=== PATIENT | male | born 1975 | race Two or more races ===

== ENCOUNTER 2016-09-18 03:36 | Emergency (ER) | payer MEDICAID ==
[~2016-09-18] VITALS: Ht 195.6 cm; Wt 172.4 kg
[~2016-09-18 03:36] MED LIST: AMLO10TA2 PO; ASPI81CH43 PO; ATE50T PO
[2016-09-18] MEDS ORDERED: cloNIDine HCL 0.1 MG TAB ONE (03:53)
[2016-09-18 04:00] VITALS: BP 214/117
[2016-09-18] MEDS ORDERED: cloNIDine HCL 0.1 MG TAB PO ONE (04:00)
[2016-09-18 04:30] LABS: Basophils # (auto) 0 uL; Basophils % (auto) 0.5 % (0.0-2.0); DEFINITIVE VIEW TRANSMISSION; Eosinophils # (auto) 0.3 uL; Eosinophils % (auto) 3.3 % (0.0-7.0); Hemoglobin 11.4 g/dL (13.5-17.5); Lymphocytes % (auto) 21.2 % (10.0-50.0); Mean Corpuscular Hemoglobin 23.6 pg (28.0-32.0); Mean Corpuscular Hgb Conc. 31.7 g/dL (32.0-36.0); Mean Corpuscular Volume 74.4 fL (80.0-100.0); Mean Platelet Volume 8.3 fL (7.4-10.4); Monocytes # (auto) 0.8 uL; Monocytes % (auto) 8.2 % (0.0-12.0); Neutrophils # (auto) 6.3 uL; Neutrophils % (auto) 66.8 % (37.0-80.0); Platelet Count (auto) 275 10^3/uL (140-450); Red Cell Distribution Width 16.7 % (11.6-16.0); White Blood Cell 9.4 10^3/uL (4.4-10.8)
[2016-09-18 04:46] LABS: INR 1.02 (0.9-1.15); Partial Thromboplastin Time 26.5 sec (22.64-33.71); Prothrombin Time 10.5 sec (9.37-12.3)
[2016-09-18 04:52] LABS: Albumin 3.1 g/dL (3.4-5.0); Calcium 8.1 mg/dL (8.5-10.1); Potassium 3.2 mmol/L (3.5-5.1)
[2016-09-18 04:54] LABS: BUN/Creatinine Ratio 11.1
[2016-09-18 04:56] LABS: Bilirubin, Total 0.1 mg/dL (0.2-1.0); Total Protein 7.3 g/dL (6.4-8.2)
[2016-09-18 05:00] LABS: B-Type Natriuretic Peptide 21.73 pg/mL (0-100)
[2016-09-18 05:20] LABS: Temperature: 22.5 C (20.0-25.0)
== END 2016-09-18 10:33 | disposition left against medical advice (07) ==
LOC: ER 03:40
DX: R51 Headache (principal); R11.0 Nausea; Z53.21 Procedure and treatment not carried out due to patient leaving prior to being seen by health care provider
CPT/HCPCS: 36415; 71010; 80053; 83880; 84484; 85025; 85610; 85730; 93005